=== PATIENT | male | born 1990 | race African-American/Black ===

== ENCOUNTER 2024-07-19 12:27 | Emergency (ER) | payer MEDICAID, OTHER ==
[~2024-07-19] VITALS: Ht 190.5 cm; Wt 137.0 kg
[2024-07-19 14:02] VITALS: BP 132/87; PULSE 60; RESP 14; TEMP 98.2; O2SAT 98
[2024-07-19] MEDS ORDERED: IBUP-1455 PO (14:23)
[2024-07-19] MEDS ORDERED: DICL1GEL59 EX (14:23)
== END 2024-07-19 15:15 | disposition home or self-care (01) ==
LOC: ER 12:27
DX: S63.591A Other specified sprain of right wrist, initial encounter (principal); Z79.899 Other long term (current) drug therapy; X58.XXXA Exposure to other specified factors, initial encounter; Y93.89 Activity, other specified; Y92.89 Other specified places as the place of occurrence of the external cause; Y99.8 Other external cause status
CPT/HCPCS: 73130